=== PATIENT | male | born 1995 | race Hispanic/Latino ===

== ENCOUNTER 2018-01-25 20:49 | Emergency (ER) | payer OTHER ==
[2018-01-25] MEDS ORDERED: KETOROLAC TROMETHAMINE 60 MG/2 ML VIAL ONE (22:12)
[2018-01-25] MEDS ORDERED: CYCLOBENZAPRINE HCL 10 MG TABLET ONE (22:12)
== END 2018-01-25 23:00 | disposition home or self-care (01) ==
LOC: EDH 20:49
DX: S16.1XXA Strain of muscle, fascia and tendon at neck level, initial encounter (principal); M79.602 Pain in left arm; Z88.0 Allergy status to penicillin; V49.49XA Driver injured in collision with other motor vehicles in traffic accident, initial encounter; Y93.89 Activity, other specified; Y92.89 Other specified places as the place of occurrence of the external cause; Y99.8 Other external cause status
CPT/HCPCS: 96372; 99283; J1885

== ENCOUNTER 2018-05-17 21:25 | Emergency (ER) | payer OTHER ==
[2018-05-17] MEDS ORDERED: DEXAMETHASONE SOD PHOSPHATE 10MG/ML 1ML VIAL ONE (21:41)
== END 2018-05-17 21:57 | disposition home or self-care (01) ==
LOC: EDH 21:25
DX: S94 Injury of nerves at ankle and foot level (principal); S91.301A Unspecified open wound, right foot, initial encounter; Z88.0 Allergy status to penicillin; Z90.49 Acquired absence of other specified parts of digestive tract; X58.XXXA Exposure to other specified factors, initial encounter; Y93.89 Activity, other specified; Y92.89 Other specified places as the place of occurrence of the external cause; Y99.8 Other external cause status
CPT/HCPCS: 96372; 99283; J1100

== ENCOUNTER 2019-08-22 02:56 | Emergency (ER) | payer OTHER ==
[2019-08-22] MEDS ORDERED: DiphenhydrAMINE HCL 50 MG/ML VIAL ONE (03:11)
[2019-08-22] MEDS ORDERED: METHYLPREDNISOLONE SOD SUCC 125MG/2ML VIAL ONE (03:11)
[2019-08-22] MEDS ORDERED: FAMOTIDINE/PF 20 MG/2 ML VIAL IV ONE (03:11)
[2019-08-22] MEDS ORDERED: RACEPINEPHRINE HCL 2.25% 0.5 ML NEB SOLN ONE (03:19)
== END 2019-08-22 04:47 | disposition home or self-care (01) ==
LOC: EDH 02:56
DX: T78.3XXA Angioneurotic edema, initial encounter (principal); Z88.0 Allergy status to penicillin; Z90.49 Acquired absence of other specified parts of digestive tract; Z88.9 Allergy status to unspecified drugs, medicaments and biological substances
CPT/HCPCS: 94640; 96374; 96375; 99284; J1200; J2930; J3490